=== PATIENT | female | born 1985 | race Asian ===

== ENCOUNTER 2017-01-29 10:08 | Emergency (ER) | payer MEDICAID ==
[~2017-01-29] VITALS: Ht 167.6 cm; Wt 83.5 kg
[2017-01-29 10:16] VITALS: BP_SYST 105
--- NOTE | 2017-01-29 10:21 | NUR ---
Ambulatory to bed 4
--- NOTE | 2017-01-29 10:29 | NUR ---
Pt presents to ER with SOB. Reports hx of asthma. Pt had an episode of dyspnea last night while with some friends. A friend had an albuterol inhaler- pt borrowed and had some relief. Pt is worried because she woke up today again SOB. Pt is 14 wks . Pt has not seen a Dr in "a while" since she has not had insurance. Pt does not take meds at home. No acute distress now. VSS
[2017-01-29 10:41] LABS: BILIRUBIN,URINE NEGATIVE (NEGATIVE); BLOOD, URINE NEGATIVE (NEGATIVE); CLARITY/URINE CLEAR (CLEAR); COLOR,URINE YELLOW (YELLOW); GLUCOSE,URINE NEGATIVE (NEGATIVE); KETONES,URINE NEGATIVE (NEGATIVE); LEUKOCYTE ESTERASE ,URINE NEGATIVE (NEGATIVE); NITRITE, URINE NEGATIVE (NEGATIVE); PH,URINE 7.5 (5.0-8.0); PROTEIN URINE NEGATIVE (NEGATIVE); UROBILINOGEN,URINE 0.2 (0.2-1.0)
--- NOTE | 2017-01-29 10:45 | NUR ---
YUE Hathaway at bedside examining patient.
[2017-01-29 11:45] LABS: BLOOD GAS PH 7.425 (7.350-7.450)
[2017-01-29 11:46] LABS: ABG TOTAL HEMOGLOBIN 13.4 G/dL (12.0-18.0); BLOOD GAS BASE EXCESS -0.9 mmol/L (-3.0-3.0); BLOOD GAS COHb% 0.4 % (0.5-1.5); BLOOD GAS HHB 3.2 % (0.0-6.0); BLOOD O2Hb% 96.3 % (94.0-97.0)
[2017-01-29 11:59] VITALS: BP_SYST 123
--- NOTE | 2017-01-29 11:59 | NUR ---
Patient given written and verbal discharge instructions and verbalizes understanding. ER MD discussed with patient the results and treatment provided. Patient in stable condition. ID arm band removed. IV catheter removed intact and dressing applied, no active bleeding. Rx of Albuterol given. Patient educated on pain management and to follow up with PMD. Pain Scale 0/10. Opportunity for questions provided and answered.
== END 2017-01-29 11:59 | disposition home or self-care (01) ==
LOC: SED 10:08
DX: O99.511 Diseases of the respiratory system complicating pregnancy, first trimester (principal); J45.909 Unspecified asthma, uncomplicated; Z3A.12 12 weeks gestation of pregnancy
CPT/HCPCS: 36600; 81003; 82803-TC; 99284